=== PATIENT | female | born 1960 | race Caucasian/White ===

== ENCOUNTER → 2023-09-10 10:27 | Outpatient (BNVA) | payer OTHER, SELFPAY | PROVIDERS: PCP Internal Medicine; Visit Provider Physician Assistant | DX: S60.221A Contusion of right hand, initial encounter (principal); S93.601A Unspecified sprain of right foot, initial encounter; W50.0XXA Accidental hit or strike by another person, initial encounter | CPT/HCPCS: 73130; 73630; 99204 ==

== ENCOUNTER → 2023-09-16 09:33 | Outpatient (BNVA) | payer OTHER, SELFPAY | PROVIDERS: PCP Internal Medicine; Visit Provider Physician Assistant | DX: S60.221A Contusion of right hand, initial encounter (principal); S93.601A Unspecified sprain of right foot, initial encounter; W50.0XXA Accidental hit or strike by another person, initial encounter | CPT/HCPCS: 99214 ==